=== PATIENT | male | born 1945 | race Caucasian/White ===

== ENCOUNTER → 2017-03-05 | Outpatient (CLI) | payer MEDICARE | END | disposition home or self-care (01) | LOC: US 08:33 | DX: Z13.6 Encounter for screening for cardiovascular disorders (principal); R09.89 Other specified symptoms and signs involving the circulatory and respiratory systems ==

== ENCOUNTER → 2018-08-31 | Outpatient (CLI) | payer MEDICARE ==
[~2018-08-31] MED LIST: CETIRIZINE10 MG PO; CO Q-10200 MG PO; CRESTOR10 M1 PO; FLOVENT DISKUS50 MCG INH; OMEPRAZOLE40 MG PO
[2018-08-31 08:47] LABS: HEMATOCRIT 41.9 % (42.0-52.0); HEMOGLOBIN 13.6 g/dl (14.0-18.0); MEAN CELL VOLUME 87.3 fl (80.0-94.0); MEAN CORPUSCULAR HGB 28.3 pg (27.0-31.0); MEAN CORPUSCULAR HGB CONC 32.5 g/dl (33.0-37.0); MEAN PLATELET VOLUME 9.1 fl (9.6-12.3); RED BLOOD COUNT 4.8 10*6/uL (4.50-5.90); RED CELL DISTRI WIDTH 12.8 % (0-14.5); WHITE BLOOD COUNT 6.2 10*3/uL (4.8-10.8)
[2018-08-31 09:21] LABS: ALBUMIN 3.6 gm/dl (3.1-4.5); ALKALINE PHOSPHATASE 74 U/L (45-117); BUN 20 mg/dl (7-24); CHLORIDE 106 mmol/L (98-107); CHOLESTEROL 185 mg/dL (<200); CREATININE 1.03 mg/dL (0.70-1.30); HDL CHOLESTEROL 47 mg/dl (40-60); LDL CHOLESTEROL 85 mg/dL (9-159); SGOT/AST 19 IU/L (3-35); SGPT/ALT 27 U/L (12-78); SODIUM 140 mmol/L (136-145); TRIGLYCERIDES 263 mg/dl (<150); VLDL CHOLESTEROL 53 mg/dL (6-40)
[2018-08-31 10:59] LABS: VITAMIN D, 25-HYDROXY 53.5 ng/mL (30-100)
== END | disposition home or self-care (01) ==
LOC: LAB 08:25
PROVIDERS: Physician Assistant
DX: Z12.5 Encounter for screening for malignant neoplasm of prostate (principal); E78.00 Pure hypercholesterolemia, unspecified; E55.9 Vitamin D deficiency, unspecified; K21.9 Gastro-esophageal reflux disease without esophagitis; Z91.09 Other allergy status, other than to drugs and biological substances

== ENCOUNTER → 2018-12-08 | Day surgery (SDC) | payer MEDICARE ==
[~2018-12-08] VITALS: Ht 177.8 cm; Wt 86.2 kg
--- NOTE | ~2018-12-08 | PROC NOTE ---
[place], [place] PROCEDURE NOTE NAME: GERI MORATAYA UNIT #: [id number] ROOM: DOCTOR: AUGIE SMITH MD BIRTHDATE: [birth year] DOS: PROCEDURE: Colonoscopy and polypectomy. INDICATION: Colon cancer screening and positive Cologuard test. An informed consent was obtained from the patient after indication of procedures. The alternatives and potential complications were explained to him. PROCEDURE MEDICATION: Sedation was administered by Anesthesiology Department. Scope used was Olympus diagnostic adult colonoscope variable stiffness GIF-180 depth of insertion was to the cecum, which was identified by the usual landmarks, appendiceal orifice, ileocecal valve and triangular fold, in addition to transillumination in the right lower quadrant. FINDINGS: After adequate sedation, the patient was placed in left lateral decubitus position. Rectal examination showed normal sphincter tone and no external hemorrhoids. Scope was introduced into the rectum, then advanced to the cecum with no difficulty. The prep was good. Multiple polyps were seen. A 15 mm cecal polyp, which was removed with the hot mini snare in a piecemeal fashion. A 12 mm ascending colon polyp removed with the hot mini snare and a 6 mm ascending colon polyp removed with a cold snare. An 8 mm transverse colon polyp was also removed with a cold mini snare. The remaining colon mucosa was otherwise normal except for the presence of mild left-sided diverticular disease. Retroflexed views in the rectum were unremarkable. The scope was then withdrawn after the rectum was decompressed. The patient tolerated the procedure well. IMPRESSION: 1. Colon polyps x 4, removed. 2. Mild left-sided diverticular disease. 3. Normal colon mucosa otherwise. PLAN: We will review the histopathology reports and treat the patient accordingly. The patient was advised to avoid aspirin and NSAIDs for the next 10 days. Office followup will be scheduled in 2-3 weeks. [place], [place] PROCEDURE NOTE NAME: CYNDIEGERI FRIEDMAN UNIT #: [id number] ROOM: DOCTOR: AUGIE SMITH MD BIRTHDATE: [birth year] AUGIE SMITH MD CM:PROCNOTE:PROCEDURE NOTE [id number] AUGIE SMITH MD
[2018-12-08 07:40] VITALS: BP 154/79
[2018-12-08 08:47] VITALS: BP 117/56
[2018-12-08 09:02] VITALS: BP 114/52
[2018-12-08 09:13] VITALS: BP 124/63
== END | disposition home or self-care (01) ==
LOC: SDC 12-05 08:00
DX: D12.2 Benign neoplasm of ascending colon (principal); D12.3 Benign neoplasm of transverse colon; K63.5 Polyp of colon; K57.30 Diverticulosis of large intestine without perforation or abscess without bleeding; K21.9 Gastro-esophageal reflux disease without esophagitis; E78.5 Hyperlipidemia, unspecified; Z98.890 Other specified postprocedural states; Z79.899 Other long term (current) drug therapy

== ENCOUNTER → 2022-01-20 | Outpatient (CLI) | payer MEDICARE | END | disposition home or self-care (01) | LOC: RAD 11:05 | PROVIDERS: ATTEND Physician Assistant | DX: M19.072 Primary osteoarthritis, left ankle and foot (principal); M85.872 Other specified disorders of bone density and structure, left ankle and foot ==

== ENCOUNTER → 2022-08-02 | Outpatient (CLI) | payer MEDICARE ==
[~2022-08-02] MED LIST changes: +FISH OIL + D31 EACH PO; +VITAMIN D3125 MCG PO
== END | disposition home or self-care (01) ==
LOC: CARD 01:34
PROVIDERS: ATTEND Internal Medicine
DX: I25.5 Ischemic cardiomyopathy (principal)

== ENCOUNTER → 2024-09-19 | Outpatient (CLI) | payer MEDICARE | END | disposition home or self-care (01) | LOC: RAD 09:17 | PROVIDERS: ATTEND Chiropractor | DX: M51.360 Other intervertebral disc degeneration, lumbar region with discogenic back pain only (principal); M48.07 Spinal stenosis, lumbosacral region; M41.86 Other forms of scoliosis, lumbar region ==